=== PATIENT | male | born 1985 | race Caucasian/White ===

== ENCOUNTER 2020-11-23 19:45 | Emergency (ER) | payer OTHER ==
[~2020-11-23] VITALS: Ht 177.8 cm; Wt 74.0 kg
[2020-11-23 22:45] VITALS: BP 135/88
--- NOTE | 2020-11-23 23:56 | PHYS DOC ---
Past Medical History Past Surgical History: Other Additional Past Surgical Histo: RIGHT SHOULDER SX (MARIKA JANG MOTOR VEHICLE FIELD REPRESENTATIVE) General Adult EDM: Chief Complaint: HAND PROBLEM HPI: HPI: Patient is a 35 year old male who presents to the ED today complaining of 5 out of 10 right hand pain after punching a headboard in anger. Patient states the pain is throbbing and intermittent worse on touching the hand. Patient is left- handed. Patient describes the pain as sharp. (MARIKA JANG MOTOR VEHICLE FIELD REPRESENTATIVE) Review of Systems: Review of Systems: Constitutional: Denies fever or chills. [] Musculoskeletal: Reports right hand pain Integument: Denies rash. [] Neurologic: Denies headache, focal weakness or sensory changes. [] Psychiatric: Denies depression or anxiety. [] (MARIKA JANG MOTOR VEHIC[employer] FIELD REPRESENTATIVE) Heart Score: C/O Chest Pain: N/A Risk Factors: Risk Factors: DM, Current or recent (<one month) smoker, HTN, HLP, family history of CAD, obesity. Risk Scores: Score 0 - 3: 2.5% MACE over next 6 weeks - Discharge Home Score 4 - 6: 20.3% MACE over next 6 weeks - Admit for Clinical Observation Score 7 - 10: 72.7% MACE over next 6 weeks - Early Invasive Strategies (MARIKA JANG MOT[employer] VEHIC[employer] FIELD REPRESENTATIVE) Physical Exam: PE: Constitutional: Well developed, well nourished, no acute distress, non-toxic appearance. [] Skin: Warm, dry, no erythema, no rash. [] Back: No tenderness, no CVA tenderness. [] Extremities: Right hand with obvious deformity on the distal fifth metacarpal. There is swelling along the right fifth metacarpal dorsal aspect. There is tenderness along the right fifth metacarpal. Full range of motion to the right hand and fingers. +2 right radial pulse. Adequate radial, medial, ulnar sensation to the right hand. Cap refill less than 2 seconds of right fingers Neurologic: Alert and oriented X 3, normal motor function, normal sensory function, no focal deficits noted. [] Psychologic: Affect normal, judgement normal, mood normal. [] (MARIKA JANG MOT[employer] VEHIC[employer] FIELD REPRESENTATIVE) Current Patient Data: Vital Signs: Vital Signs Date Time Temp Pulse Resp B/P (MAP) Pulse Ox O2 Delivery O2 Flow Rate FiO2 9/5/21 22:45 98.0 65 18 135/88 100 Room Air 98.0 (MARIKA JANG APRN) EKG: EKG: [] (MARIKA JANG APRN) Radiology/Procedures: Radiology/Procedures: [] (MARIKA JANG APRN) Course & Med Decision Making: Course & Med Decision Making Pertinent Labs and Imaging studies reviewed. (See chart for details) This is a 35-year-old male patient with a right hand injury. Patient punched a headboard. He is left-handed. He has fracture of the right fifth metacarpal. He was placed in a ulnar gutter splint by the ED RN, neurovascular exam done by me is normal. Ice elevation encouraged. Instructed to contact orthopedic doc tor on Tuesday and set up a follow-up appointment. (MARIKA JANG APRN) Dragon Disclaimer: Dragon Disclaimer: This electronic medical record was generated, in whole or in part, using a voice recognition dictation system. (MARIKA JANG APRN) Departure Departure Impression: Primary Impression: Fracture of fifth metacarpal bone Disposition: HOME / SELF CARE / HOMELESS Condition: STABLE Referrals: UNKNOWN PCP NAME (PCP) ERIC HESS MD call his office on Tuesday and set up a follow up appointment Patient Instructions: Hand Fracture, Fifth Metacarpal Additional Instructions: You have a right hand fracture. Try to ice and elevate the extremity. Please contact the provided orthopedic doctor tomorrow morning and set up a follow-up appointment Attending Signature Attending Signature I have reviewed the PA/LOCK AND DAM OPERATOR's note and plan of care. I was available for consu ltation as needed during the patient's visit in the emergency department. I agree with the clinical impression, plan, and disposition. (PAVAN NICOLAS DO) MARIKA JANG APRN Nov 23, 2020 23:56 PAVAN NICOLAS DO Nov 24, 2020 00:42
--- NOTE | 2020-11-24 06:52 | RAD ---
Right hand 3 views: Reason for examination: Punched a bed frame with pain. There is a fracture at the distal fifth metacarpal bone with mild angulation and displacement. No oth er site of fracture or dislocation is seen. The bone density is normal. No abnormal periosteal reacti on is seen. IMPRESSION: Fracture of the distal fifth metacarpal bone with mild displacement and angulation. Electronically signed by: Jacqui Vital MD (11/24/2020 6:49 AM) [place]
== END 2020-11-24 00:04 | disposition home or self-care (01) ==
LOC: ER 19:45
DX: S62.396A Other fracture of fifth metacarpal bone, right hand, initial encounter for closed fracture (principal); W22.8XXA Striking against or struck by other objects, initial encounter; Y93.89 Activity, other specified; Y92.89 Other specified places as the place of occurrence of the external cause; Y99.8 Other external cause status
CPT/HCPCS: 29125; 73130; 99283